=== PATIENT | male | born 1995 | race Caucasian/White ===

== ENCOUNTER 2017-06-03 21:22 | Inpatient (IN) | payer BC, OTHER ==
[~2017-06-03 21:22] MED LIST: ANTICRE6; LEVO100T4 PO
[2017-06-03 21:24] VITALS: BP 187/83; PULSE 141; RESP 22; TEMP 98.2; O2SAT 97
[2017-06-03] MEDS ORDERED: SODIUM CHLOR 0.9% 1000 ML INJ 1,000 ML IV SCH (21:29)
[2017-06-03] MEDS ORDERED: ceFAZolin 2 GM PREMIX 50 ML IV ONE (21:30)
[2017-06-03] MEDS ORDERED: SODIUM CHLORIDE 0.9% FLUSH 10 ML FLUSH IVF PRN (21:30)
[2017-06-03] MEDS ORDERED: DIPHTH/TETANUS/ACEL PERTUSSIS (BOOSTER) 0.5 ML VIAL/PFS IM ONE ×2 (21:30→21:51)
[2017-06-03 21:35] VITALS: O2SAT 98
[2017-06-03 21:55] LABS: I-STAT POTASSIUM 3.3 MMOL/L (3.5-4.9); I-STAT SODIUM 141 MMOL/L (138-146)
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
[2017-06-03 21:59] LABS: BASOPHIL # 0.1 TH/MM3 (0-0.2); BASOPHIL % 0.5 % (0.0-2.0); EOSINOPHIL # 0.3 TH/MM3 (0-0.4); EOSINOPHIL % 1.9 % (0.0-4.0); HEMATOCRIT 48.2 % (39.0-51.0); LYMPH % 38.8 % (9.0-44.0); LYMPHOCYTE # 5.5 TH/MM3 (1.0-4.8); MEAN CELL VOLUME 84.2 FL (80.0-100.0); MEAN CORPUSCULAR HEMOGLOBIN 28.8 PG (27.0-34.0); MEAN CORPUSCULAR HGB CONC 34.1 % (32.0-36.0); MONO % 8.9 % (0.0-8.0); NEUT % 49.9 % (16.0-70.0); PLATELET COUNT 347 TH/MM3 (150-450); RED BLOOD COUNT 5.73 MIL/MM3 (4.50-5.90); RED CELL DISTRIBUTION WIDTH 13.3 % (11.6-17.2); WHITE BLOOD COUNT 14.1 TH/MM3 (4.0-11.0)
[2017-06-03 22:02] LABS: HEMO FLAGS AUTO DIFF
[2017-06-03 22:07] LABS: APTT (PATIENT) 23.9 SEC (24.3-30.1); PROTHROMBIN TIME - PATIENT 9.7 SEC (9.8-11.6)
[2017-06-03] MEDS ORDERED: IOHEXOL 350 MG/ML 10 ML VIAL (for RAD DIAG) IVCONTRAST ONE (22:21)
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
[2017-06-03 22:33] LABS: ALCOHOL LESS THAN 3 MG/DL (0-5)
[2017-06-03 22:37] LABS: PLATELET ESTIMATE SMEAR NORMAL (NORMAL); PLATELET MORPHOLOGY NORMAL (NORMAL); SCAN/DIFF AUTO DIFF CONFIRMED
[2017-06-03] MEDS ORDERED: ACETAMINOPHEN/HYDROcodone 325 MG/5 MG TAB PO PRN (22:45)
[2017-06-03] MEDS ORDERED: MORPHINE SULFATE 4 MG/ML INJ IV PUSH PRN (22:45)
[2017-06-03] MEDS ORDERED: ONDANSETRON HCL 4 MG/2 ML VIAL IV PUSH PRN (22:45)
[2017-06-03] MEDS ORDERED: ONDANSETRON HCL 4 MG/2 ML VIAL IV ONE (22:45)
[2017-06-03] MEDS ORDERED: MORPHINE SULFATE 4 MG/ML INJ IV PUSH ONE (22:45)
[2017-06-04] VITALS (8 sets, daily range): BP systolic 103–170; BP diastolic 55–77; PULSE 57–107; RESP 18–20; TEMP 96.6–96.9; O2SAT 96–100
[2017-06-04] MEDS ORDERED: ENALAPRILAT 1.25 MG/ML VIAL IV PUSH PRN (00:30)
[2017-06-04] MEDS ORDERED: ONDANSETRON HCL 4 MG/2 ML VIAL IV PUSH PRN (00:30)
[2017-06-04] MEDS ORDERED: MORPHINE SULFATE 4 MG/ML INJ IV PUSH ONE (00:30)
[2017-06-04] MEDS ORDERED: SODIUM CHLORIDE 0.9% FLUSH 10 ML FLUSH IV FLUSH PRN (00:30)
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
[2017-06-04] MEDS ORDERED: PANTOPRAZOLE SODIUM 40 MG VIAL IVP SCH (09:00)
[2017-06-04] MEDS ORDERED: MORPHINE SULFATE 2 MG/ML INJ IV PUSH PRN (10:00)
[2017-06-04] MEDS ORDERED: TYLE325T PO (11:45)
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
== END 2017-06-04 17:42 | disposition home or self-care (01) | DRG 605 ==
LOC: NEPE 21:22 → NEDA 22:46 → OBSVTOIN 06-04 00:31 → N06A 06-04 04:10
PROVIDERS: ADMIT Surgery; ATTEND Surgery
DX: S01.401A Unspecified open wound of right cheek and temporomandibular area, initial encounter (principal); S21.101A Unspecified open wound of right front wall of thorax without penetration into thoracic cavity, initial encounter; S41.001A Unspecified open wound of right shoulder, initial encounter; S41.101A Unspecified open wound of right upper arm, initial encounter; S11.90XA Unspecified open wound of unspecified part of neck, initial encounter; F17.210 Nicotine dependence, cigarettes, uncomplicated; S21.201A Unspecified open wound of right back wall of thorax without penetration into thoracic cavity, initial encounter; R00.0 Tachycardia, unspecified; X95.01XA Assault by airgun discharge, initial encounter; Y93.01 Activity, walking, marching and hiking; Y92.410 Unspecified street and highway as the place of occurrence of the external cause
CPT/HCPCS: 70450; 70486; 71010; 71260; 72125; 80307; 82435; 82565; 82947; 84132; 84295; 84520; 85025; 85384; 85610; 85730; 86850; 86900; 86901; 90715; C9113; J0690; J2270; J2405; J7030; Q9967